=== PATIENT | male | born 1995 | race American Indian/Alaskan Native ===

== ENCOUNTER 2017-12-04 06:41 | Emergency (ER) | payer MEDICAID, OTHER ==
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
[2017-12-04] MEDS ORDERED: Sodium Chloride 0.9% 1,000 ML IV ONE (07:22)
[2017-12-04] MEDS ORDERED: Sodium Chloride 0.9% 10 ML Syringe FLUSH PRN (07:22)
--- NOTE | 2017-12-04 08:42 | CT ---
CT cervical spine Technique: Multiple axial sections were obtained from above C1 inferiorly to the bottom of T1. Reconstructed sagittal and coronal images were reviewed. Comparison: No previous cervical spine imaging. Findings: Vertebral body heights and disc spaces are maintained. Vertebral bodies and posterior arches are intact with no fracture being seen. No bony central or bony neural foraminal stenosis is seen. Posterior skull base is intact. No abnormal subluxation is seen. Impression: 1. Nothing acute is seen on CT study of the cervical spine. Diagnostic code #1
--- NOTE | 2017-12-04 08:42 | CT ---
Head CT Technique: Multiple axial sections through the brain were obtained. Intravenous contrast was not utilized. Comparison: No previous intracranial imaging. Findings: Ventricles along with basal cisterns and sulci over the convexities are within normal limits for the patient's age. No abnormal parenchymal densities are seen. No evidence of intracranial hemorrhage. No midline shift or mass effect is seen. Bone window settings were reviewed which shows a small defect within the medial left orbital wall with a small amount of fat extending into the ethmoid sinus. This likely relates to old injury. No acute calvarial abnormality is seen. Impression: 1. Finding within the medial left orbital wall as described above. 2. No acute intracranial abnormality is identified. Diagnostic code #2
--- NOTE | 2017-12-04 09:08 | CR ---
Chest: Frontal view of the chest was obtained. Comparison: No prior chest x-ray. Heart size and mediastinum are normal. Lungs are clear. Minimal scoliosis is noted. Impression: 1. Minimal scoliosis. Nothing acute is otherwise seen. Diagnostic code #2
--- NOTE | 2017-12-04 09:08 | CR ---
Right shoulder: Three views of the right shoulder were obtained. Comparison: No prior shoulder exam. Acromioclavicular separation is seen. Calcification is seen below the distal right clavicle likely representing dystrophic calcification from old injury. Glenohumeral joint is normal. No acute fracture or other abnormality is seen. Impression: 1. Right acromioclavicular separation. Uncertain if this is acute or old. This is most likely old due to dystrophic calcification being seen inferior to the distal right clavicle. Please correlate with the patient's symptoms. 2. Right shoulder study is otherwise unremarkable. Diagnostic code #3
== END 2017-12-04 09:48 | disposition home or self-care (01) ==
LOC: JD.ED 06:41
DX: S09.90XA Unspecified injury of head, initial encounter (principal); S49.91XA Unspecified injury of right shoulder and upper arm, initial encounter; S00.81XA Abrasion of other part of head, initial encounter; F10.920 Alcohol use, unspecified with intoxication, uncomplicated; Y90.6 Blood alcohol level of 120-199 mg/100 ml; Y04.8XXA Assault by other bodily force, initial encounter
CPT/HCPCS: 36415; 70450; 71045; 72125; 73030; 80053; 81001; 83735; 85025; 85610; 86850; 86900; 86901; 96360; 99285; G0480; J7040; J7050; 99283